=== PATIENT | male | born 1985 | race Caucasian/White ===

== ENCOUNTER 2021-10-02 02:50 | Emergency (ER) | payer MEDICAID ==
[~2021-10-02] VITALS: Ht 172.7 cm; Wt 72.6 kg
[2021-10-02 02:55] VITALS: BP 122/82
[2021-10-02 03:19] VITALS: BP 122/82
--- NOTE | 2021-10-02 03:20 | NUR ---
PATIENT BIB [facility]. PATIENT EXAMINED BY DR. MCINTOSH. PATIENT MEDICALLY CLEARED AND RELEASED IN CUSTODY IN STABLE CONDITION. ORIGINAL PRE-BOOK FORM GIVEN TO OFFICER LANDRY.
== END 2021-10-02 03:20 ==
LOC: MED 02:50
DX: F10.129 Alcohol abuse with intoxication, unspecified (principal); Z02.89 Encounter for other administrative examinations; V89.2XXA Person injured in unspecified motor-vehicle accident, traffic, initial encounter; Y93.89 Activity, other specified; Y92.89 Other specified places as the place of occurrence of the external cause; Y99.8 Other external cause status
CPT/HCPCS: 99283